=== PATIENT | male | born 1965 | race Caucasian/White ===

== ENCOUNTER 2022-03-03 05:09 | Day surgery (SDC) | payer BC ==
[2022-03-01 08:33] VITALS: BMI 23.5
[2022-03-03 11:22] VITALS: TEMP 99.1
[2022-03-03 11:40] VITALS: BP 133/70; PULSE 70; RESP 16
== END 2022-03-03 11:50 | disposition home or self-care (01) ==
LOC: JASU-ENDO 05:09
PROVIDERS: ATTEND Internal Medicine Gastroenterology
PROC: 0DBK8ZX Excision of Ascending Colon, Via Natural or Artificial Opening Endoscopic, Diagnostic (ICD-10-PCS; principal; 2022-03-03 10:00)
DX: Z12.11 Encounter for screening for malignant neoplasm of colon (principal); D12.2 Benign neoplasm of ascending colon; K62.89 Other specified diseases of anus and rectum
CPT/HCPCS: 88305-TC